=== PATIENT | female | born 1950 | race Caucasian/White ===

== ENCOUNTER 2017-01-18 21:13 | Observation (INO) | payer MEDICARE, OTHER ==
--- NOTE | ~2017-01-18 | EKG ---
PATIENT: HILLARY BERNAL UNIT #: [id number] Ventricular Rate: 80 BPM Atrial Rate: 80 BPM P-R Interval: 128 ms QRS Duration: 76 ms Q-T Interval: 386 ms QTC Calculation(Bezet): 445 ms P Guild: 75 degrees Calculated R Guild: 4 degrees Calculated T Guild: 44 degrees Diagnosis Line: Normal sinus rhythm Diagnosis Line: Normal ECG Diagnosis Line: When compared with ECG of 05-JUN-2014 12:40, Diagnosis Line: Premature supraventricular complexes are no longer Diagnosis Line: Present Diagnosis Line: Questionable change in QRS axis Diagnosis Line: Non-specific change in ST segment in Lateral leads Diagnosis Line: T wave amplitude has increased in Lateral leads Diagnosis Line: Confirmed by LEA MARY MD ([id number]) on 01/20/2017 Diagnosis Line: 5:59:38 AM INTERPRETING MD: TYRA ZARATE
--- NOTE | ~2017-01-18 | MR134 ---
[facility] A Service of [facility] RADIOLOGY TEXT RESULTS PATIENT: HILLARY BERNAL LOCATION: [facility] 325 : 49 UNIT #: [id number] AGE: [address]: Julee Santana MD SEX: F ORDER DR: [id number] [facility] [address] [facility] [place], [place] [address] [id number] I MR#: [id number] Acc #: [id number] NAME: HILLARY BERNAL : 1950 SEX: F STUDY DATE/TIME: 01/20/2017 12:24 UNIT: [address] ROOM: [facility] STUDY DESCRIPTION: MR MRA Neck Wo Contrast Attending Physician: Julee Santana M.D. Ordering Physician: Rhonda Rivera M.D. Primary Care Physician: Jaylene Rhodes M.D. MRI CENTER REPORT This report is preliminary unless electronic signature is present. EXAM MR angiogram of the neck without. HISTORY Syncope, multiple episodes. Known aneurysm coiling. Multiple falls. Four syncopal episodes in just the past week with light-headedness. History of a pelvic fracture. Three intracranial aneurysm per patient. History of lupus with platelet involvement. History of cancer, otherwise specified. COMMENT MR angiography performed neck vessels centered at the level of the carotid bifurcations without contrast. By NASCET criteria, no hemodynamically significant narrowing is suspected at either carotid bifurcation. Both vertebral arteries are patent and codominant. IMPRESSION No hemodynamically significant narrowing is suspected at either carotid bifurcation. Both vertebral arteries are patent and codominant. Dictated by... Jania Dunn M.D. THIS IS AN ELECTRONICALLY VERIFIED REPORT Jania Dunn M.D. at 01/20/2017 5:49 PM KARISSA/leesa TD: 01/20/2017 16:47 [facility] A Service [facility] RADIOLOGY TEXT RESULTS PATIENT: HILLARY BERNAL LOCATION: [facility] 325-01 : 49 UNIT #: [id number] AGE: [address]: Julee Santana MD SEX: F ORDER DR: HADLEY #: [id number] MRI CENTER REPORT Page 1 of 1 COPY
--- NOTE | ~2017-01-18 | XA166 ---
[facility] A Service of [facility] RADIOLOGY TEXT RESULTS PATIENT: HILLARY BERNAL LOCATION: [facility] 325- : 49 UNIT #: [id number] AGE: [address]: Julee Santana MD SEX: F ORDER DR: [id number] [facility] [address] [facility]. [place], [place] [address] [id number] I MR#: [id number] Acc #: [id number] NAME: HILLARY BERNAL : 1950 SEX: F STUDY DATE/TIME: 01/19/2017 14:20 UNIT: C3A U ROOM: 325 STUDY DESCRIPTION: XA PICC Line Placement WO Port Attending Physician: Julee Santana M.D. Ordering Physician: Julee Santana M.D. Primary Care Physician: Jaylene Rhodes M.D. MEDICAL IMAGING REPORT This report is preliminary unless electronic signature is present EXAM Right-sided PICC line placement INDICATION Need for IV access in a patient with a history of hypertension, lupus and cerebral aneurysm. PRE-PROCEDURE The procedure was explained to the patient and/or patient clearance representative including risks, benefits, potential complications and potential for alternative forms of treatment. Informed consent was obtained, and prior to initiating the procedure a formal timeout procedure was performed. PROCEDURE Using full standard sterile barrier technique, including caps, gowns, gloves, masks, as well as sterile skin preparation and standard sterile draping, the right arm was prepped and draped in the usual fashion, and real-time sterile ultrasound guidance was used to localize an arm vein and to confirm vessel patency. A hard copy ultrasound image was recorded. After local anesthesia with 1% Xylocaine, the vein was punctured using real-time sterile ultrasound guidance, and an 0.018 guidewire was advanced into the superior vena cava, using fluoroscopic guidance. A 5 Kinyarwanda dual-lumen PICC was then measured and deployed with the tip positioned in the superior vena cava. The position of the line was documented with a radiographic image. The line was secured in place with an adhesive dressing and an antibiotic patch was applied. Total fluoro time was 0.1 minutes. AK was 1 mGy. IMPRESSION Successful placement of a 5 Kinyarwanda dual-lumen Power PICC via the right arm under ultrasound and fluoroscopic guidance. The tip of the PICC is in good position in the superior vena cava. [facility] A Service of [facility] RADIOLOGY TEXT RESULTS PATIENT: HILLARY BERNAL LOCATION: [facility] 325-01 : [birth year] UNIT #: [id number] AGE: [address]: Julee Santana MD SEX: F ORDER DR: Dictated by... Charlotte Montemayor M.D. THIS IS AN ELECTRONICALLY VERIFIED REPORT Charlotte Montemayor M.D. at 01/21/2017 2:08 PM AFF/kira TD: 01/20/2017 10:51 JOB #: [id number] MEDICAL IMAGING REPORT Page 1 of 1 COPY
--- NOTE | ~2017-01-18 | CO ---
Unit #: [id number] #: [id number] Patient: HILLARY BERNAL [id number] [facility] [address] [facility] [place], [place] [address] [id number] I MR#: [id number] NAME: HILLARY BERNAL ROOM: 325 Age: 66 Sex: F Admission Date: 01/18/2017 : 1950 Attending Physician: Julee Santana M.D. Primary Care Physician: Jaylene Rhodes M.D. Consultation Date: 01/19/2017 CONSULTATION REPORT PRIMARY CARE PHYSICIAN Jaylene Rhodes M.D. REASON FOR CONSULTATION Syncope, recurrent. PATIENT IDENTIFICATION This is a 66-year-old right-handed white female, who was evaluated in room 325 at [facility]. SOURCE OF INFORMATION The patient and evaluation done by Dr. Santana. PROBLEM LIST 1. History of lupus, systemic involvement. 2. 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 3. 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 4. She sees Dr. Moffett at [facility] and saw him last week. 5. Peripheral vascular disease, status post bypass in both legs. 6. Hypertension. 7. Pelvic fracture in 09/2016 from a fall, which was associated with syncope. 8. Several other falls including hitting her head and has been evaluated. 9. Right shoulder surgery. 10. Hysterectomy. 11. Ovarian surgery. 12. Back surgery. 13. History of anxiety and depression. 14. History of thrombocytopenia. 15. History of fungal infection. 16. Hypothyroidism. 17. History of chronic obstructive pulmonary disease and bronchiectasis. 18. History of rheumatoid arthritis. HISTORY OF PRESENT ILLNESS Let me start by saying that I am really totally confused about this whole situation. The patient has several syncopal episodes. She had 4 last week and some before that and she has been evaluated and had a pelvic fracture reportedly from a syncopal episode and fall. She has had 2 episode, which was severe enough that included hitting her head and she went to the hospital and this is the first time, her doctor sending on here for evaluation where as she sees Dr. De La Cruz and also sees Dr. Moffett and is matter of fact, the neurosurgeon, and she was there last week. The Unit #: [id number] #: [id number] Patient: HILLARY BERNAL falls and syncope are bad enough that causing head injuries and pelvic fractures and yet she never mentions it to anybody or nobody even works her up for why she is falling and has passing-out episodes. I am just totally lost in this whole situation as that does not make sense. Also, she has been to multiple other hospitals, so it is not like a set of doctors have overlooked the symptoms. Unfortunately, her has left, so I will try to contact him. I am not sure if any workup has been done, but when I asked her, she says she has not had an EEG done and it looks like she has some cardiac workup done. Also, it looks like she saw Dr. Moffett at [facility] last week and he did some sort of an imaging study and told her that they will watch the aneurysm which I believe is in MCA somewhere, but I do not have those details either. Her syncopal episodes are mostly when she is up and about and she just collapses. She passes out. She may be down for a minute or two. According to the patient, has reported that her eyes twitch, but beyond that I cannot say anything. No loss of bowel or bladder control. Confusion afterwards is questionable. She is getting cardiac evaluation done also including Holter. When I asked her, she says this is the place where we have done the most and nobody else as done something like that. PAST MEDICAL HISTORY As discussed above. PAST SURGICAL HISTORY As discussed above. ALLERGIES Tylenol and sulfa. HOME MEDICATIONS Aspirin 81 mg, Levothroid 50 mcg, metoprolol 25 extended release p.o. daily, Seroquel 300 mg at bedtime, clonazepam 2 mg q.i.d., hydroxychloroquine. FAMILY HISTORY Positive for breast cancer. SOCIAL HISTORY Apparently, she lives with her . No tobacco or drug use known to me. REVIEW OF SYSTEMS Mostly as discussed in the history of present illness. CONSTITUTIONAL: No weight issues. No fever, chills, rigor, or sweats. No headaches. HEENT: No headaches anymore. NECK: No neck pain. CARDIOVASCULAR: No chest pain, clubbing, cyanosis, orthopnea, or palpitation. PULMONARY: No shortness of air, cough, or expectoration. GI: No nausea, vomiting, diarrhea, or constipation. GENITOURINARY: No genitourinary symptoms. EXTREMITIES: Weakness. She has some chronic low back pain. She is status post fall. Unit #: [id number] #: [id number] Patient: HILLARY BERNAL PSYCHIATRIC: Anxiety and depression. NEUROLOGIC: Brain aneurysm and syncope. No other hematologic, dermatologic, or endocrine problems. PHYSICAL EXAMINATION VITAL SIGNS: Temperature 97.8; blood pressure lying down was 120/47, pulse of 61; sitting down was 135/49, pulse is not documented; standing was 101/47, pulse not documented; O2 saturations 97% to 100%. Weight of 118 pounds. BMI was 21. NEUROLOGIC: The patient is awake. She is alert. She is essentially oriented. She can name. She can follow commands. No right/left confusion. No finger agnosia. Cranial nerve examination, responded to threats in all zelaya. Eye movements are conjugate. I did not see any ptosis. I did not see any nystagmus. Extraocular movements are intact. Sensation on the face and scalp are normal. Strength of muscles of facial expression normal. Hearing seemed to be intact bilaterally. Tongue was midline. Uvula was midline. Palate elevation was normal. Head turning and shoulder shrugs were unremarkable. Motor examination demonstrated normal bulk, tone. Strength was essentially 5/5. Sensory examination intact for soft touch and pain sensation. No extinction was seen. Romberg was not evaluated. Gait examination was deferred. I could not get any reflexes. Toes are equivocal. Coordination was otherwise unremarkable in the upper extremities. DIAGNOSTIC STUDIES LABORATORY RESULTS: Reviewed. Creatinine is 1.7. TSH was 3.49. White count is 8.9, platelet count 139. IMAGING STUDIES: Reviewed. IMPRESSION This is a very interesting and very nonspecific situation where somebody is having syncopal episodes probably 10 in the last few years with significant consequences and has never been worked up. The doctors do not even know, neurologist and neurosurgeon do not even know. She has brain aneurysms and yet nobody cares this whole thing does not make any sense to me. I will try to get some records. I will check an EEG. I am going to try to get an MRA of the head and neck. Her blood pressure is on the lower side. She has peripheral vascular disease, so we will see how this all pans out and if I can get some more information to make some sense out of it and then we will go from there. I am not starting any medication right now, but I may end up with antiepileptics, where Cardiology to do their work, loss of consciousness precautions apply and call me if any other questions, issues, or concerns and I will keep you informed before the state laws also apply. Dictated by... Thiago Guevara/makenzie Unit #: [id number] #: [id number] Patient: HILLARY BERNAL TD: 01/20/2017 04:16 JOB #: [id number] CONSULTATION REPORT Page 1 of 1 X Rhonda Rivera MD X CONSULTATION REPORT
--- NOTE | ~2017-01-18 | HM ---
Unit #: [id number] #: [id number] Patient: HILLARY BERNAL [id number] [address] [address] [id number] I MR#: [id number] NAME: HILLARY BERNAL : 1950 SEX: F STUDY DATE/TIME: 01/19/2017 UNIT: C3A PCU ROOM: [facility] STUDY DESCRIPTION: Holter Monitor Attending Physician: Julee Santana M.D. Primary Care Physician: Jaylene Rhodes M.D. CARDIOLOGY REPORT EXAM Holter monitor DATE APPLIED 01/19/2017 DATE SCANNED 01/23/[address] Chi READ BY Dr. Machado INDICATION Syncope FINDINGS 1. Underlying rhythm is normal sinus. Minimum recorded heart rate is 60 beats per minute, maximal recorded heart rate is 116 beats per minute with an average heart rate of 83 beats per minute. 2. Sixty-eight isolated premature ventricular contractions were recorded. 3. Five premature atrial contractions are recorded, all isolated. 4. There is no significant slowing of the heart rate, AV andie block, sinus arrest or sinus pause. 5. Patient did not maintain any symptom or activity diary. IMPRESSION Dvdiid-tgmf-mwcr ambulatory monitoring is within normal limits. Dictated by... Thiago Yu/maida TD: 02/01/2017 20:09 JOB #: [id number] CC: Tamara Chi M.D. Unit #: [id number] #: [id number] Patient: HILLARY BERNAL CARDIOLOGY REPORT Page 1 of 1 X Montez Machado MD HOLTER MONITOR REPORT
--- NOTE | ~2017-01-18 | EE ---
Unit #: [id number] #: [id number] Patient: HILLARY BERNAL [id number] [address] [address] [id number] I MR#: [id number] NAME: HILLARY BERNAL : 1950 SEX: F STUDY DATE/TIME: 01/20/2017 UNIT: C3A PCU ROOM: [address] [place] [address] DESCRIPTION: EEG Attending Physician: Julee Santana M.D. Referring Physician: Rhonda Rivera M.D. Primary Care Physician: Jaylene Rhodes M.D. NEURODIAGNOSTICS REPORT PROCEDURE PERFORMED EEG. REASON FOR STUDY Recurrent syncope. EEG DESCRIPTION This is an inpatient, digitally recorded, multi-montage, adult EEG with leads placed according to the International 10-20 system. Hyperventilation and photic stimulation were questionable. PROCEDURE REPORT With the patient fully aroused, there is 9-10 Hz posterior dominant alpha rhythm, which is symmetric and attenuates with eyes opening. The patient did become drowsy, but I did not see any deeper stages of sleep. There is no documentation of hyperventilation or photic stimulation. Nothing suggesting clearcut interictal discharges or clinical events. No asymmetry was seen. IMPRESSION This seemed to be a normal adult, awake and asleep EEG. An EEG like this does not rule out epilepsy. Clinical correlation is recommended. Dictated by... Thiago Guevara/tim TD: 01/23/2017 08:46 JOB #: [id number] Unit #: [id number] #: [id number] Patient: HILLARY BERNAL NEURODIAGNOSTICS REPORT Page 1 of 1 X Rhonda Rivera MD NEURODIAGNOSTICS REPORT
--- NOTE | ~2017-01-18 | MR122 ---
[facility] A Service of [facility] RADIOLOGY TEXT RESULTS PATIENT: HILLARY BERNAL LOCATION: [facility] 325-01 : [birth year] UNIT #: [id number] AGE: [address]: Julee Santana MD SEX: F ORDER DR: [id number] [facility] [address] [place], [place] [address] [id number] I MR#: [id number] Acc #: [id number] NAME: HILLARY BERNAL : 1950 SEX: F STUDY DATE/TIME: 01/20/2017 12:24 [facility] STUDY DESCRIPTION: MR MRA Head Wo Contrast Attending Physician: Julee Santana M.D. Ordering Physician: Rhonda Rivera M.D. Primary Care Physician: Jaylene Rhodes M.D. MRI CENTER REPORT This report is preliminary unless electronic signature is present. EXAM MR angiogram intracranial 01/20/2017 HISTORY 4 syncopal episodes in the past week with multiple falls. History of 3 aneurysms per patient, 1 coiled at the basilar tip. COMMENT MR angiography performed mechoopda of Mcnair vasculature without contrast. COMPARISON STUDIES Comparison study is from 04/27/2015. FINDINGS In the interval since that study it appears that the aneurysm at the tip of the basilar has been coiled. There is redemonstration of a aneurysm at the right MCA bifurcation. It is directed laterally and measures about 3-4 mm in length and 2-3 mm in diameter. On comparison to 04/27/2015 it is probably slightly larger. It is saccular in configuration. There is some irregular density in the left MCA bifurcation region again seen. It would be helpful to compare with the outside conventional angiogram obtained when the aneurysm was coiled. I do not have access to that study or report. I cannot exclude a smaller aneurysm at the left MCA bifurcation. There is again signal loss at the proximal right A1 vessel and possibly at the midportion of the right M1 vessel. This is concerning for some areas of stenosis. IMPRESSION 1. Interval coiling of the basilar tip aneurysm since the comparison study of 04/27/2015. 2. Redemonstration of right MCA bifurcation aneurysm probably slightly larger. 3. Complex anatomy left MCA again not well seen. Cannot exclude a tiny STS. [facility] A Service of [facility] RADIOLOGY TEXT RESULTS PATIENT: HILLARY BERNAL LOCATION: [facility] 325-01 : [birth year] UNIT #: [id number] AGE: [address]: Julee Santana MD SEX: F ORDER DR: aneurysm in this location. Most helpful would be comparison to the interval outside conventional angiogram. 4. Concern for atherosclerotic disease at the origin of the right A1 vessel and in the right M1 vessel. No intracranial vascular cutoff is appreciated. Dictated by... Jania Dunn M.D. THIS IS AN ELECTRONICALLY VERIFIED REPORT Jania Dunn M.D. at 01/21/2017 5:32 PM Renetta TD: 01/20/2017 18:24 JOB #: [id number] MRI CENTER REPORT Page 1 of 1 COPY
--- NOTE | ~2017-01-18 | HP ---
Unit #: [id number] #: [id number] Patient: HILLARY BERNAL [id number] [address] [place], [place] [address] [id number] I MR#: [id number] NAME: HILLARY BERNAL ROOM: 325 Age: 66 Sex: F Admission Date: 01/18/2017 : 1950 Attending Physician: Julee Santana M.D. Primary Care Physician: Jaylene Rhodes M.D. HISTORY AND PHYSICAL CHIEF COMPLAINT Syncope. HISTORY OF PRESENT ILLNESS This is a 66-year-old with history of lupus and brain aneurysm. Admitted because of syncope. According to her, she has been passing out for a few times since the last few days. Last week, she went to her neurologist, but she did not mention the symptoms to her neurologist. In the past, she fell and broke her pelvic bone and her tailbone. Currently, she is complaining of low back pain, 8/10, constant, and radiating to her groin. She denies dizziness. No chest pain. No shortness of breath. No fever. No chills. No nausea, vomiting, diarrhea, or constipation. She does not have dizziness before the spells. No incontinence to urine or bowel. No seizure-like activity. PAST MEDICAL HISTORY 1. History of lupus, systemic involvement. Patient goes to (1) Center for platelets every week for that. Also, she lost her left kidney from lupus. 2. She has brain aneurysms x2, which are less than 5 mm, currently monitoring by her neurologist. 3. She has peripheral vascular disease, status post bypass to her legs. 4. Hypertension. 5. Pelvic fracture in September 2016 from fall. 6. Right shoulder surgery. 7. Hysterectomy. 8. Ovarian surgery. 9. Back surgery. 10. History of anxiety and depression. 11. Thrombocytopenia history. 12. History of fungal infection. 13. Hypothyroidism. 14. History of COPD and bronchiectasis. 15. History of rheumatoid arthritis. FAMILY HISTORY Positive for breast cancer in her twin sister. SOCIAL HISTORY No smoking, no alcohol, no drugs. ALLERGIES Tylenol and sulfa. Unit #: [id number] #: [id number] Patient: HILLARY BERNAL CURRENT HOME MEDICATIONS 1. Aspirin 81 mg p.o. daily. 2. Levothyroid 50 mcg daily. 3. Metoprolol 25 extended release p.o. daily. 4. SEROquel 300 at bedtime. 5. Clonazepam 2 mg 4 times daily. 6. Hydroxychloroquine 200 mg p.o. b.i.d. REVIEW OF SYSTEMS Complaining of headache, especially in her back chronically. No visual changes. No weakness, numbness, or tingling. No leg swelling. No skin rash. Reviewed 12-point system with her, which are negative, except in the HPI. PHYSICAL EXAMINATION VITAL SIGNS: Temperature 98.3, pulse 88, respirations 18, and blood pressure 121/53. GENERAL: 66-year-old lying on bed not in acute distress. Mildly depressed. HEENT: Pupils equally reactive to light and accommodation. Dry mucosa present. NECK: Supple. HEART: S1 and S2 heard. Regular rhythm. No murmurs. LUNGS: Clear to auscultation. Decreased breath sounds. ABDOMEN: Soft and nontender. Bowel sounds are present. EXTREMITIES: No pedal edema. NEUROLOGICAL: Nonfocal. Motor 5/5. No nystagmus. DIAGNOSTIC STUDIES LABORATORY: WBC 8.9, hemoglobin 13.4, and platelets 139. INR 1.3. Sodium 141, potassium 4.4, and creatinine 1.7. TSH 3.49. Troponins negative. Urinalysis shows bacteria 3+, WBCs 10-20, leukocyte esterase trace, and positive nitrite. CARDIOVASCULAR: EKG: Normal sinus rhythm. ASSESSMENT AND PLAN This is a 66-year-old admitted because of syncope. 1. Syncope, multiple episodes. Etiology unclear. I am going to check cardiac enzymes and echocardiogram. Will check orthostatic vitals and ask neurology to see her. CAT scan of the head is negative. 2. Acute kidney injury, prerenal. I am going to give IV fluids and monitor closely. She has single kidney. 3. Urinary tract infection. Patient started on Rocephin. I will check urine cultures. 4. History of lupus with thrombocytopenia, stable. Monitor. 5. History of brain aneurysm. CAT scan of the head did not show any bleeding. Monitor. 6. Hypertension, well controlled. 7. Bilateral SCDs for DVT prophylaxis and Protonix 40 p.o. daily for GI prophylaxis. Dictated by Thiago Olmos/celina Unit #: [id number] #: [id number] Patient: HILLARY BERNAL TD: 01/19/2017 10:16 JOB #: [id number] HISTORY AND PHYSICAL Page 1 of 1 X Julee Santana MD X HISTORY AND PHYSICAL
--- NOTE | ~2017-01-18 | MR18 ---
[facility] A Service of [facility] & [facility] RADIOLOGY TEXT RESULTS PATIENT: HILLARY BERNAL LOCATION: [facility] 325-01 : [birth year] UNIT #: [id number] AGE: [address]: Julee Santana MD SEX: F ORDER DR: [id number] [facility] [address] [place], [place] [address] [id number] MR#: [id number] Acc #: [id number] NAME: HILLARY BERNAL : 1950 SEX: F STUDY DATE/TIME: 01/20/2017 12:24 [facility] ROOM: [facility] STUDY DESCRIPTION: MR Brain Wo Contrast Attending Physician: Julee Santana M.D. Ordering Physician: Rhonda Rivera M.D. Primary Care Physician: Jaylene Rhodes M.D. MRI CENTER REPORT This report is preliminary unless electronic signature is present. EXAM MRI brain without contrast HISTORY History of lupus, previously treated aneurysm, 4 syncopal episodes in the past week. Multiple falls. TECHNIQUE MRI of the brain was performed without contrast using routine 1.5-T imaging technique. COMPARISON STUDIES There is a comparison brain MRI from 04/27/2015. FINDINGS There is a known aneurysm coil at the tip of the basilar. There is no evidence for a recent ischemic insult on the diffusion series. 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 There is no Chiari-I malformation. Midline structures otherwise unremarkable. The susceptibility associated with a coiled mass can be seen at the tip of the basilar. No MRI evidence for recent intracranial hemorrhage. There is [id number] white matter signal abnormality, nonspecific, likely due to small vessel disease. These changes are noted on the study of 04/27/2015 and largest lesions are again seen at the left frontal centrum semiovale/pronator dick radiata region. On comparison to prior, there is likely subtle progression of the white matter disease. It is probably due to small vessel disease in light of history. There is no extra-axial fluid collection. The major intracranial flow voids are maintained. There is generalized atrophy. This patient has had cataract surgery bilaterally. Retained secretions likely in the left maxillary sinus. Mastoid air cells clear. Mild generalized atrophy. Small chronic lacunes in the cerebellar hemispheres and mild signal abnormality in the brainstem STS. [facility] A Service of [facility] & [facility] RADIOLOGY TEXT RESULTS PATIENT: HILLARY BERNAL LOCATION: [facility] 325-01 : [birth year] UNIT #: [id number] AGE: [address]: Julee Santana MD SEX: F ORDER DR: are likely due to small vessel disease. IMPRESSION 1. No evidence for a recent ischemic insult on the diffusion series. 2. Re-demonstration of probable sequelae of small vessel disease with mild progression from prior. 3. Susceptibility associated with a coil mass at the tip of the basilar. 4. Mild generalized atrophy. No extraaxial fluid collection or intracranial mass effect. Dictated by... Jania Dunn M.D. THIS IS AN ELECTRONICALLY VERIFIED REPORT Jania Dunn M.D. at 01/20/2017 5:49 PM SAC/pcl TD: 01/20/2017 17:10 JOB #: [id number] MRI CENTER REPORT Page 1 of 1 COPY
[~2017-01-18 21:13] MED LIST: ACIPHEX20 MG PO; ATARAX PO; B COMPLEX1 CA1 PO; CIPRO PO; DETROL LA PO; DUONEB 2.5-0.5 M3 ML NEB; FISH OIL 1,2001 EACH PO; FLEXERIL PO; KLONOPIN PO; KLONOPIN1 MG PO; LEVOTHROID50 MCG PO; NEXIUM PO; PERCOCET 51 UDTAB 5/ DOB; PERCOCET5/325 PO; PLAQUENIL200 MG PO; PREDNISONE10 MG PO; PREDNISONE10 MG/DOSE PO; PROMETHAZINE D118 ML PO; PYRIDIUM PO; SEROQUEL PO; SYNTHROID PO; TESSALON PERLE100 M1 PO; ULTRAM ER100 MG PO; VICODIN; VICODIN 5/500 T1 TAB PO; VITAMIN D1000 UNI1 PO; VORICONAZOLE200 MG PO
[2017-01-19] MEDS ORDERED: SYNTHROID0.05 MG PO (02:35)
[2017-01-19] MEDS ORDERED: METOPROLOL SUCC25 MG PO (02:37)
[2017-01-19] MEDS ORDERED: QUETIAPINE FUM300 MG PO (02:38)
[2017-01-19] MEDS ORDERED: CLONAZEPAM2 MG PO (02:39)
[2017-01-19] MEDS ORDERED: PLAQUENIL200 MG PO (02:40)
[2017-01-19] MEDS ORDERED: ASPIRIN81 MG PO (02:55)
[2017-01-19 05:52] LABS: BASOPHIL% 0.4 % (0-2.5); EOSINOPHIL# 0.4 X10e3 (0-0.7); EOSINOPHIL% 4.6 % (0.0-7.0); HEMATOCRIT 41.4 % (35.0-45.0); HEMOGLOBIN 13.4 gm/dL (12.0-16.0); LYMPHOCYTE# 1.1 X10e3 (1.0-3.5); LYMPHOCYTE% 12.5 % (17.0-45.0); MEAN CELL VOLUME 92.6 FL (83-96); MEAN CORPUSCULAR HGB CONC 32.5 g/dL (30-36); MEAN PLATELET VOLUME 8.6 FL (6.5-11.5); MONOCYTE# 0.7 X10e3 (0-1.0); MONOCYTE% 7.5 % (3.0-12.0); NEUTROPHIL# 6.7 X10e3 (1.5-7.1); PLATELET COUNT 139 X10e3 (140-420); RED BLOOD COUNT 4.47 X10e (3.90-5.30); RED CELL DISTRIBUTION WIDTH 15.1 % (11.0-15.5); WHITE BLOOD COUNT 8.9 X10e3 (4.0-10.5)
[2017-01-19 05:56] LABS: DIFF IND NO
[2017-01-19 06:24] LABS: PARTIAL THROMBOPLASTIN TIME 27.5 SECONDS (23.5-31.3); PROTHROMBIN TIME (PATIENT) 10.4 SECONDS (9.6-11.5)
[2017-01-19 06:33] LABS: BUN/CREATININE RATIO 10.58; CALCIUM SERUM 9.3 mg/dL (8.4-10.2); CREATININE SERUM 1.7 mg/dL (0.6-1.4); GLOM FILT RATE Estimated 30.7 mL/min (>60); POTASSIUM 4.4 mmol/L (3.5-5.1)
[2017-01-19 11:00] LABS: CK TOTAL 47 IU/L (26-140)
[2017-01-19 15:14] LABS: FOLATE (FOLIC ACID) 7.1 ng/mL (>5.8)
[2017-01-19 16:34] LABS: CK TOTAL 50 IU/L (26-140)
[2017-01-20 05:51] LABS: HEMATOCRIT 31.5 % (35.0-45.0); MEAN CELL VOLUME 94.3 FL (83-96); MEAN CORPUSCULAR HEMOGLOBIN 30.4 PG (28-34); MEAN CORPUSCULAR HGB CONC 32.2 g/dL (30-36); MEAN PLATELET VOLUME 8.6 FL (6.5-11.5); RED BLOOD COUNT 3.34 X10e (3.90-5.30); RED CELL DISTRIBUTION WIDTH 14.8 % (11.0-15.5); WHITE BLOOD COUNT 5.7 X10e3 (4.0-10.5)
[2017-01-20 06:13] LABS: HEMOGLOBIN 10.2 gm/dL (12.0-16.0)
[2017-01-20 06:26] LABS: BUN/CREATININE RATIO 10.66; CALCIUM SERUM 7.6 mg/dL (8.4-10.2); CREATININE SERUM 1.5 mg/dL (0.6-1.4); GLOM FILT RATE Estimated 35.7 mL/min (>60); POTASSIUM 4.5 mmol/L (3.5-5.1)
[2017-01-20] MEDS ORDERED: VITAMIN B-1000 MCG/2 SUBQ (15:17)
== END 2017-01-20 16:55 | disposition home or self-care (01) ==
LOC: SEDOF 21:13 → C3A PCU 01-19 01:54
PROVIDERS: Internal Medicine; Psychiatry & Neurology Neurology
PROC: 02HV33Z Insertion of Infusion Device into Superior Vena Cava, Percutaneous Approach (ICD-10-PCS; principal; 2017-01-18)
DX: R55 Syncope and collapse (principal); I51.7 Cardiomegaly; I07.1 Rheumatic tricuspid insufficiency; G31.89 Other specified degenerative diseases of nervous system; I67.1 Cerebral aneurysm, nonruptured; E03.9 Hypothyroidism, unspecified; I73.9 Peripheral vascular disease, unspecified; I49.1 Atrial premature depolarization; I49.3 Ventricular premature depolarization; Z79.899 Other long term (current) drug therapy; Z79.82 Long term (current) use of aspirin; F41.8 Other specified anxiety disorders; M54.5 Low back pain; M32.9 Systemic lupus erythematosus, unspecified; Z91.81 History of falling; Z90.710 Acquired absence of both cervix and uterus; Z80.0 Family history of malignant neoplasm of digestive organs; Z80.3 Family history of malignant neoplasm of breast; Z88.2 Allergy status to sulfonamides; Z88.8 Allergy status to other drugs, medicaments and biological substances
CPT/HCPCS: 70544; 70547; 70551; 76937; 77001; 80048; 82550; 82607; 82746; 84443; 84484; 85025; 85027; 85610; 85730; 93005; 93225; 93226; 93306; 95816; 96374; 96376; C1751; G0378; J0696